=== PATIENT | female | born 1940 | race Caucasian/White ===

== ENCOUNTER 2018-11-06 13:29 | Emergency (ER) | payer MEDICARE, BC ==
[~2018-11-06] VITALS: Ht 157.5 cm; Wt 84.0 kg
[~2018-11-06 13:29] MED LIST: ASPI-1 PO; CALC-336 PO; CHOL200012 PO; IBUP-1984 PO; LACT1CAP57 PO; LIDO76.5 TOP; MAGNESIUM/ZINC PO; MULT-1085 PO; OMEG500C PO; RED600CA2 PO; TRIA1CAP6 PO; TURM500C3 PO
--- NOTE | 2018-11-06 14:03 | NUR ---
PT TO CT VIA [facility]
--- NOTE | 2018-11-06 14:09 | NUR ---
ATTEMPTED TO DRAW BLOOD OFF LABS, WAS ONLY ABLE TO GET APPROX 6 ML - IV IS PATENT AND WORKS WELL, JUST WON'T DRAW. DAVON SENT TO LAB. 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
[2018-11-06 14:16] LABS: BASOPHILS # (AUTO) 0.1 X10'3 (0-0.2); BASOPHILS % (AUTO) 0.5 % (0-1); EOSINOPHILS % (AUTO) 0.1 % (0-6); HEMATOCRIT 38.5 % (35.0-45.0); HEMOGLOBIN 12.8 g/dl (12.0-16.0); LYMPHOCYTES % (AUTO) 7.1 % (21-51); MEAN CORPUSCULAR HEMOGLOBIN 31.5 PG (27.0-31.0); MEAN CORPUSCULAR HGB CONC 33.1 % (33.0-36.5); MEAN PLATELET VOLUME 8.3 FL (7.4-10.4); MONOCYTES # (AUTO) 0.7 X10'3 (0-0.9); MONOCYTES % (AUTO) 5.1 % (2-12); NEUTROPHILS # (AUTO) 12.7 X10'3 (1.8-7.7); NEUTROPHILS % (AUTO) 87.2 % (42-75); PLATELET COUNT 332 X10'3 (140-440); RED BLOOD COUNT 4.06 X10'6 (4.20-5.60); WHITE BLOOD COUNT 14.6 X10'3 (4.5-11.0)
[2018-11-06 14:30] LABS: ALANINE AMINOTRANSFERASE 23 U/L (12-78); ALBUMIN/GLOBULIN RATIO 0.4 (1.1-1.5); ALKALINE PHOSPHATASE 91 IU/L (46-116); ANION GAP 13 (8-16); ASPARTATE AMINO TRANSFERASE 18 U/L (10-37); BILIRUBIN,TOTAL 0.7 MG/DL (0.1-1.0); BLOOD UREA NITROGEN 38 MG/DL (7-18); BUN/CREATININE RATIO 30.6 (6.6-38.0); CHLORIDE 102 MMOL/L (99-107); CREATININE 1.24 MG/DL (0.40-0.90); GLUCOSE 216 MG/DL (70-104); LIPASE 101 U/L (73-393); POTASSIUM 3.8 MMOL/L (3.5-5.1); SODIUM 138 MMOL/L (135-145); TOTAL CARBON DIOXIDE 22.7 MMOL/L (24-32); TOTAL PROTEIN 7.5 G/DL (6.4-8.2); eGFR 42 ML/MIN
[2018-11-06 14:54] LABS: CLARITY,URINE CLOUDY (Clear); COLOR,URINE YELLOW (Yellow); GLUCOSE, URINE 100 mg/dl (Neg); KETONES,URINE NEGATIVE (Neg); LEUKOCYTE ESTERASE ,URINE SMALL (Neg); NITRITES, URINE POSITIVE (Neg); OCCULT BLOOD,URINE LARGE (Neg); PROTEIN,URINE 100 mg/dl (Neg)
[2018-11-06 15:00] LABS: LARGE PLATELETS FEW; PLATELET ESTIMATE NORMAL
[2018-11-06 15:02] LABS: UA COLLECTION TYPE STRAIGHT CATH
[2018-11-06 15:03] LABS: WBC,URINE 50-100 /HPF (0-4)
[2018-11-06 15:04] LABS: BACTERIA,URINE 4+ /HPF (Neg); SQUAMOUS EPITHELIAL CELL,UR FEW /LPF (FEW)
--- NOTE | 2018-11-06 15:10 | NUR ---
PT HAS NO NEW COMPLAINTS - REPOSITIONED IN BED FOR COMFORT.
[2018-11-06] MEDS ORDERED: CEPH500C5 PO (15:20)
[2018-11-06] MEDS ORDERED: PANT-47 PO (15:21)
[2018-11-06] MEDS ORDERED: normal saline 1000ML IV soln IVB ONE (15:35)
--- NOTE | 2018-11-06 15:38 | NUR ---
iv fluid infusing. PA at bedside to update patient and family.
[2018-11-06] MEDS ORDERED: cephalexin 250mg capsule PO ONE (15:45)
--- NOTE | 2018-11-06 16:14 | NUR ---
PT READY FOR D\C - WAITING FOR IV FLUID TO [facility] INFUSING
[2018-11-06 16:15] VITALS: BP 162/68
--- NOTE | 2018-11-06 16:44 | NUR ---
PT ASSISTED TO BSC PRIOR TO D\C - SHE WAS THEN PLACED IN WHEELCHAIR AND HELPED TO VEHICLE
== END 2018-11-06 16:44 | disposition home or self-care (01) ==
LOC: ER 13:29
DX: N39.0 Urinary tract infection, site not specified (principal); E11.9 Type 2 diabetes mellitus without complications; R10.13 Epigastric pain; Z79.82 Long term (current) use of aspirin; Z79.899 Other long term (current) drug therapy
CPT/HCPCS: 36415; 74176; 80053; 81001; 83690; 85025; 87077; 87088; 87186; 99284; J7030; P9612

== ENCOUNTER 2025-03-31 22:21 | Emergency (ER) | payer MEDICARE, BC ==
[~2025-03-31] VITALS: Ht 149.9 cm; Wt 115.0 kg
[~2025-03-31 22:21] MED LIST changes: -LIDO76.5 TOP; +LIDO76.56 TOP; +PANT-47 PO; -TRIA1CAP6 PO; +TRIA1CAP88 PO
--- NOTE | 2025-03-31 22:31 | ELECTROCARDIOGRAPH REPORT ---
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 Edis Metcalf Measurements Intervals [place] Rate: 77 P: 0 IL: 0 QRS: -18 QRSD: 93 T: -3 QT: 474 QTc: 537 Interpretive Statements Atrial flutter Ventricular premature complex Borderline left axis deviation Borderline T wave abnormalities ST elevation, consider inferior injury Prolonged QT interval Electronically Signed On 04-01-2025 6:34:[address] Edis Metcalf Please click the below link to view image of tracing.
--- NOTE | 2025-03-31 23:39 | Physician Documentation ---
History of Present Illness ~ Chief Complaint: Mechanical Fall Stated Complaint: LEFT SHOULDER PAIN Time Seen by MD: 23:19 Mode of Arrival: EMS, Stretcher HPI This is a very pleasant 84-year-old female who comes in for evaluation of potential injuries sustained in a mechanical ground level fall. She was taking a trash cans, turned around, lost her balance, and fell onto her left side. Denies any head strike. Denies any headache. Reports an immediate onset of sharp nonradiating pain in her left shoulder, worse with a any range of motion, no particular palliating factors. This never happened in the past. Able to move, was able to ambulate on scene. Denies any chest pain or difficulty breathing, denies any abdominal pain. No concern for tobacco, alcohol or illicit substances use Tetanus within 5 Years?: No (UNK) Medication Reconciliation Allergies: Coded Allergies: No Known Allergies (Unverified , 03/31/25) Scheduled Aspirin (Aspirin), 325 MG PO Q24H@0830 Calcium Carbonate (Calcium), 1 TAB PO DAILY, (Reported) Cholecalciferol (Vitamin D3) (Vitamin D3), 1 TAB PO DAILY, (Reported) Ibuprofen* (Motrin*), 1 TAB PO Q6H PRN, (Reported) Lactobacillus Acidophilus (Acidophilus), 1 EACH PO DAILY, (Reported) Lidocaine HCl (Aspercreme), 1 APPLIC TOP DAILY, (Reported) Multivitamin (Multi Vitamin Daily), 1 EACH PO DAILY, (Reported) Ora-3 Fatty Acids (Fish Oil), 500 MG PO DAILY, (Reported) Pantoprazole Sodium (PROTONIX tablet), 1 TAB PO DAILY Red Yeast Rice (Red Yeast Rice), 2,400 MG PO BID, (Reported) Triamterene/Hydrochlorothiazid (Triamterene-Hctz 37.5-25 Mg Cp), 1 CAP PO DAILY, (Reported) Turmeric Root Extract (Turmeric), 1 TAB PO DAILY, (Reported) [Magnesium/Zinc], 1 TAB PO DAILY, (Reported) Past Medical History Past Surgical History: noncontributory Drug Use: none Lives In: Home Review of Systems ROS 10 point review of systems was performed and unless noted above in HPI is negative for acute process/complaint. Physical Exam Vital Signs: Temperature: 98.2, Source: Oral, Heart Rate: 73, Respiratory Rate: 16, BP: 125/72, Pulse Oximetry: 97, Weight: 115.000 Oxygen Flow Rate: 0 Physical Exam Physical examination: GENERAL: Awake, alert, oriented, GCS 15, no apparent distress, non-toxic appearing, answers questions, follows commands appropriately. HEENT: Atraumatic, normocephalic, pupils equal, extraocular muscles intact Active gross movements, sclerae anicteric, mucus membranes moist, no stridor. NECK: Midline, no JVD CARDIOVASCULAR: Good skin perfusion without evidence of pallor, mottling. PULMONARY: Nonlabored, symmetric chest rise, no audible wheezing, no accessory muscle use, no respiratory distress, speaking in full sentences. GASTROINTESTINAL: Not distended. NEUROLOGIC: Lucid with normal mental status. Normal facial symmetry. Moves all extremities symmetrically and with purpose. No truncal ataxia. Speech is fluid without evidence of dysarthria or aphasia, no focal deficits appreciated. EXTREMITIES: Acute deformities Skin: warm, dry PSYCHIATRIC: Normal affect, normal insight, normal concentration. Focused exam: [] Left shoulder is tender to palpation reproducing chief complaint, no obvious deformity, no crepitus. Neurovascularly intact distally. Range of motion is severely limited due to pain. Progress Results/Orders Results/Orders Orders - MILTON COLLIER DO Shoulder, Complete (Min 2 Vws) (03/31/25 22:53) Ct Upper Extrem(Shoulder/Arm) (04/01/25 00:23) * Arm Sling To Be Placed Overn (04/01/25 03:24) Completed Orders - MILTON COLLIER DO Electrocardiogram (03/31/25 22:27) Shoulder, Complete (Min 2 Vws) (03/31/25 22:53) Hydromorphone 1 Mg/Ml/Pf (Dilaudid Inj.) (03/31/25 23:30) Ct Upper Extrem(Shoulder/Arm) (04/01/25 00:23) Medications Received in ER Medications (Trade) Dose Ordered Sig/Graham Route PRN Reason Start Time Stop Time Status Last Admin Dose Admin (Dilaudid inj.) 1 mg ONCE ONCE IM 03/31/25 23:30 04/01/25 00:02 DC 04/01/25 01:13 1 MG Vital Signs 03/31/25 03/31/25 04/01/25 04/01/25 22:44 23:08 01:13 02:04 Temp 98.2 Pulse 73 Resp 16 16 16 18 B/P (MAP) 125/72 Pulse Ox 97 O2 Flow Rate 0 04/01/25 04/01/25 02:05 02:07 Temp 98.2 Pulse 86 Resp 18 18 B/P (MAP) 140/70 (93) Pulse Ox 98 O2 Flow Rate 0 EKG/XRAY/CT/US/VASC/MRI EKG : Additional Comment EKG was obtained per protocol and interpreted by myself. It shows atrial flutter, rate of 77, narrow QRS, prolonged QT. no STEMI. Medical Decision Making Findings Facility Status: ED Holds, RME process The plan was discussed with the patient, who demonstrates clear understanding of the plan and is in agreement with the plan unless otherwise noted in the chart. All questions have been answered, all concerns were addressed unless otherwise documented. I was available throughout their ED stay for frequent reassessment and questions. Differential Diagnoses (considered and possible or likely): [Ground level fall, acute traumatic pain, left shoulder contusion versus fracture versus dislocation ] ??Differential Diagnoses (considered and unlikely, not requiring evaluation currently): [No evidence of neurovascular injury. Denies adamantly any head strike.] MDM Data Please see [facility] for the following: Independent Historians and external Records Review. Historian: [Patient] Independent Historians: ?[EMS] Medication Management: [Reviewed medication list] Social History and determinants: [Reviewed] Please see the body of the note for the following: Any independent interpretations of ECG, imaging studies. All vitals signs/haemodynamics, ordered tests were independently reviewed and interpreted by myself. Nursing triage complaint and vitals reviewed, additional nursing notes were reviewed as available and I agree unless otherwise noted or documented in contradiction in the chart Vital Signs: Independently reviewed Labs: Independently interpreted Imaging: Independently interpreted Old Medical Records: Independently reviewed, see [facility] for relevant summary and information Pulse Oximetry: [100% ] interpreted as [normal on room air] by me [Outbound Sales Professional: [Regular Rate, Regular rhythm, no ectopy, NSR] reviewed and interpreted by me] Additionally notably showing: [Hemodynamically stable. X-ray of the was equivocal. CT was obtained showing a fracture humeral head.] Tests considered but not ordered include: [Hematologic workup has been considered but does not appear to be necessary given mechanical nature of the injury.] Social Determinants of Health Impact: Patient was evaluated in [facility], or [facility] [place] healthcare due to below par ratio of patient to medical providers. [] Comorbid Conditions Impacting Present Evaluation and Care/Treatment: [] Management Discussions with other Healthcare Providers: [None the] Treatment and Disposition Medication Management (Given or considered): [Pain management]. See EMR for details Consideration for Hospitalization/Escalation/Deescalation of Care: Admission for observation has been considered, [however the patient is able to tolerate p.o., their symptoms are controlled, they are able to rely on oral medications, and their chief complaint/diagnosis can be managed on outpatient basis.] ?ED Course:?[Arm was placed in the sling. No clinical deterioration.] ?Shared decision making:?[Patient is hemodynamically stable for discharge home with follow with their primary care provider. [ ] Specific and cautious return precautions provided and discussed with full understanding. Any incidental findings were also discussed and follow up recommendations given. [] All questions answered. Patient/family were able to verbalize back return precautions. Patient/family agree to plan. Copies of imaging and laboratory studies were provided.] Code status:?FULL Please see the full Electronic Medical Record for full details of nursing documentation, medications list, other records of complete past medical history and conditions, vital signs, laboratory studies, and any radiologic study interpretations by radiologists. Portions of this note were completed using [employer] dictation software and as a result there may exist minor errors in spelling. I have reviewed elements of past family and social history and agree as included in note. Departure Disposition: 01 HOME / SELF CARE / HOMELESS Impression: Primary Impression: Fracture of humeral head, left, closed Additional Impressions: Acute traumatic pain Ground-level fall Condition: Improved Discharge Instructions: Humerus Fracture Treated With Immobilization Referrals: NO PRIMARY CARE PROVIDER (PCP) Prescriptions Hydrocodone Bit/Acetaminophen 5/325 MG ([place] 5/325 MG) 5 Mg/325 Mg Tablet 1 TAB PO Q6H PRN for pain, #14 TAB Prov: MILTON COLLIER DO 04/01/25 Education Educated: Patient Educated regarding: diagnosis, treatment, prognosis, need for follow up Signature Scribe Signature: No scribe Attestation: This note accurately reflects clinical decisions, work performed by myself, DO AMIRA Santos NICHOLAS M DO March 31, 2025 23:39
--- NOTE | 2025-04-01 00:13 | RADIOLOGY REPORT ---
EXAMINATIONS: 2 views of the left shoulder CLINICAL HISTORY: pain/fall COMPARISON: None Findings and impression: High-riding appearance of the humerus with irregularities of the acromion. This may be sequelae of c hronic rotator cuff pathology, however, acute on chronic injury can not be entirely excluded. Recomme nd cross-sectional imaging such as CT and/or MRI to further evaluate.
[2025-04-01] MEDS: HYDROmorphone 1 mg/ml syringe IM ONE (01:13)
--- NOTE | 2025-04-01 02:47 | RADIOLOGY REPORT ---
INDICATION: L shoulder pain COMPARISON: None TECHNIQUE: CT of the left shoulder was performed without contrast. Volume transverse images were obta ined and reconstructed in multiple planes using bone and soft tissue algorithms. CONTRAST: None Radiation Dose Information: CTDI volume is 29.06 mGy. Dose-length product is 632.58 mGy*cm FINDINGS: Moderately impacted and displaced, comminuted fracture of the humeral head and surgical neck. Degener ative changes within the glenohumeral joint include joint space narrowing and marginal osteophytosis with otherwise normal articulation. Severe hypertrophic acromioclavicular arthropathy noted. The soft tissues are normal. Atherosclerotic vascular calcifications noted. The imaged portions of the mediastinum and antonio thorac es are otherwise normal. IMPRESSION: 1. Moderately impacted and displaced fracture of the left humeral head and surgical neck in the setti ng of advanced degenerative change. 2. All CT scans at this medical facility are performed using dose modulation techniques as appropriat e to a performed exam including the following: Automated exposure control was utilized; adjustment of the MA and/or KV according to patient size; and use of iterative reconstruction technique.
[2025-04-01] MEDS ORDERED: HYDR-3965 PO (03:29)
[2025-04-01 03:38] VITALS: BP 134/55; PULSE 94; RESP 16; TEMP 98.4; O2SAT 98
== END 2025-04-01 03:48 | disposition home or self-care (01) ==
LOC: ER 22:22
DX: S42.292A Other displaced fracture of upper end of left humerus, initial encounter for closed fracture (principal); G89.11 Acute pain due to trauma; Z79.899 Other long term (current) drug therapy; Z79.82 Long term (current) use of aspirin; W01.0XXA Fall on same level from slipping, tripping and stumbling without subsequent striking against object, initial encounter; Y93.89 Activity, other specified; Y92.89 Other specified places as the place of occurrence of the external cause; Y99.8 Other external cause status
CPT/HCPCS: 73030; 73200; 93005; 96372; 99285; A4565; J1171; 99284